=== PATIENT | female | born 1995 | race Caucasian/White ===

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

== ENCOUNTER 2017-10-13 15:03 | Emergency (ER) | payer BC, OTHER ==
--- NOTE | 2017-10-13 15:51 | EDM.PDOC ---
ED HPI GENERAL MEDICAL PROBLEM - General Chief Complaint: Abdominal Pain Stated Complaint: ABD PAIN Time Seen by Provider: 10/13/17 15:40 Source of Information: Reports: Patient History Limitations: Reports: No Limitations - History of Present Illness INITIAL COMMENTS - FREE TEXT/NARRATIVE: HISTORY AND PHYSICAL: History of present illness: Patient comes to the emergency room complaining of right and left upper abdominal pain. Symptoms began around noon yesterday and has persisted into today. She describes the pain as an aching that is sharp and is just below her ribs on both sides of her abdomen. She is having pain with laying on either side and on her back. She is complaining of low back pain worse on the right than the left. Denies burning with urination and urinary frequency. No blood in her urine. She is also having some loose stools-several episodes today. No nausea or vomiting. Appetite is normal. Patient is concerned that she may be constipated as she is only been having small amounts of watery stools. Her abdomen feels full and that she needs to have a bowel movement. Denies earaches sore throat head and chest congestion. No coughing chest pain shortness of breath or difficulty breathing. No nausea or vomiting. No swelling to her feet or lower legs. Is sexually active and uses control. Is due for her period any day. Review of systems: As per history of present illness and below otherwise all systems reviewed and negative. Past medical history: As per history of present illness and as reviewed below otherwise noncontributory. Surgical history: As per history of present illness and as reviewed below otherwise noncontributory. Social history: No reported history of drug or alcohol abuse. Family history: As per history of present illness and as reviewed below otherwise noncontributory. Physical exam: HEENT: Atraumatic, normocephalic., pupils reactive, negative for conjunctival pallor or scleral icterus, mucous membranes moist, throat clear, neck supple, nontender, trachea midline. Lungs: Clear to auscultation bilaterally. No wheezing crackles or rales. Heart: S1S2, regula rate and rhythm. No murmur gallop click or rub. Abdomen: Bowel sounds are normoactive throughout. No masses guarding or rebound. She is tender with palpation over suprapubic area as well as to right and left upper quadrants and epigastric area. Tender with percussion over right CVA. Pelvis: Stable nontender. Genitourinary: Deferred. Rectal: Deferred. Extremities: Atraumatic. No swelling or cyanosis. No muscle or joint aches or pains. Neurovascular unremarkable. Neuro: Awake, alert, oriented. Motor and sensory unremarkable throughout. Exam nonfocal. Diagnostics: [CBC, CMP, urinalysis, urine , amylase, lipase, abd x-ray] Impression: [Abdominal discomfort] Plan: [Discussed with patient that her abdominal x-ray shows no stool or obstruction, and that her labs are within normal limits. Recommend she treat as a viral syndrome at this point with clear fluids and no dairy, fatty or greasy foods until she is feeling improved. Follow-up with PCP. Return to ER as needed as discussed. She is in agreement with today's plan.] Definitive disposition and diagnosis as appropriate pending reevaluation and review of above. 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 Musculoskeletal History: Reports: None Neurological History: Reports: None Psychiatric History: Reports: None Endocrine/Metabolic History: Reports: None Hematologic History: Reports: None Oncologic (Cancer) History: Reports: None Dermatologic History: Reports: None - Infectious Disease History Infectious Disease History: Reports: Chicken Pox - Past Surgical History Head Surgeries/Procedures: Reports: None HEENT Surgical History: Reports: Adenoidectomy, Myringotomy w Tube(s), Tonsillectomy Social & Family History - Family History Family Medical History: Noncontributory - Tobacco Use Smoking Status *Q: Never Smoker Second Hand Smoke Exposure: No - Caffeine Use Caffeine Use: Reports: Soda Caffeine Use Comment: 3/week - Recreational Drug Use Recreational Drug Use: No ED ROS GENERAL - Review of Systems Review Of Systems: ROS reveals no pertinent complaints other than HPI. ED EXAM, GI/ABD - Physical Exam Exam: See Below Course - Vital Signs Last Recorded V/S: Last Vital Signs Temp 98.1 F 10/13/17 18:31 Pulse 65 10/13/17 18:31 Resp 16 10/13/17 18:31 BP 119/65 10/13/17 18:31 Pulse Ox 100 10/13/17 18:31 - Orders/Labs/Meds Labs: Laboratory Tests 10/13/17 10/13/17 10/13/17 Range/Units 15:42 15:42 15:45 WBC 8.56 (4.0-11.0) K/uL RBC 4.86 (4.30-5.90) M/uL Hgb 12.1 (12.0-16.0) g/dL Hct 37.9 (36.0-46.0) % MCV 78.0 L (80.0-98.0) fL MCH 24.9 L (27.0-32.0) pg MCHC 31.9 (31.0-37.0) g/dL RDW Std Deviation 41.4 (28.0-62.0) fl RDW Coeff of Lucia 15 (11.0-15.0) % Plt Count 310 (150-400) K/uL MPV 11.70 (7.40-12.00) fL Neut % (Auto) 69.0 (48.0-80.0) % Lymph % (Auto) 20.8 (16.0-40.0) % Gray % (Auto) 9.3 (0.0-15.0) % Eos % (Auto) 0.7 (0.0-7.0) % Baso % (Auto) 0.2 (0.0-1.5) % Neut # (Auto) 5.9 H (1.4-5.7) K/uL Lymph # (Auto) 1.8 (0.6-2.4) K/uL Gray # (Auto) 0.8 (0.0-0.8) K/uL Eos # (Auto) 0.1 (0.0-0.7) K/uL Baso # (Auto) 0.0 (0.0-0.1) K/uL Nucleated RBC % 0.0 /100WBC Nucleated RBCs # 0 K/uL Sodium (136-146) mmol/L Potassium (3.5-5.1) mmol/L Chloride (98-110) mmol/L Carbon Dioxide (21-31) mmol/L BUN (6.0-23.0) mg/dL Creatinine (0.6-1.5) mg/dL Est Cr Clr Drug Dosing mL/min Estimated GFR (MDRD) ml/min Glucose (60-110) mg/dL Calcium (8.8-10.8) mg/dL Total Bilirubin (0.1-1.5) mg/dL AST (5-40) IU/L ALT (8-54) IU/L Alkaline Phosphatase (40-150) Total Protein (6.0-8.0) g/dL Albumin (3.5-5.0) g/dL Globulin (2.0-3.5) g/dL Albumin/Globulin Ratio (1.3-2.8) Amylase (10-90) U/L Lipase (7-80) U/L Urine Color YELLOW Urine Appearance CLEAR Urine pH 6.0 (5.0-8.0) Ur Specific [place] >= 1.030 (1.001-1.035) Urine Protein NEGATIVE (NEGATIVE) mg/dL Urine Glucose (UA) NEGATIVE (NEGATIVE) mg/dL Urine Ketones NEGATIVE (NEGATIVE) mg/dL Urine Occult Blood TRACE-INTACT (NEGATIVE) Urine Nitrite NEGATIVE (NEGATIVE) Urine Bilirubin NEGATIVE (NEGATIVE) Urine Urobilinogen 0.2 (<2.0) EU/dL Ur Leukocyte Esterase NEGATIVE (NEGATIVE) Urine RBC 0-1 (0-2/HPF) Urine WBC 0-1 (0-5/HPF) Ur Epithelial Cells FEW (NONE-FEW) Urine Bacteria RARE (NEGATIVE) Urine HCG, Qual NEGATIVE (NEGATIVE) 10/13/17 Range/Units 15:45 WBC (4.0-11.0) K/uL RBC (4.30-5.90) M/uL Hgb (12.0-16.0) g/dL Hct (36.0-46.0) % MCV (80.0-98.0) fL MCH (27.0-32.0) pg MCHC (31.0-37.0) g/dL RDW Std Deviation (28.0-62.0) fl RDW Coeff of Lucia (11.0-15.0) % Plt Count (150-400) K/uL MPV (7.40-12.00) fL Neut % (Auto) (48.0-80.0) % Lymph % (Auto) (16.0-40.0) % Gray % (Auto) (0.0-15.0) % Eos % (Auto) (0.0-7.0) % Baso % (Auto) (0.0-1.5) % Neut # (Auto) (1.4-5.7) K/uL Lymph # (Auto) (0.6-2.4) K/uL Gray # (Auto) (0.0-0.8) K/uL Eos # (Auto) (0.0-0.7) K/uL Baso # (Auto) (0.0-0.1) K/uL Nucleated RBC % /100WBC Nucleated RBCs # K/uL Sodium 142 (136-146) mmol/L Potassium 3.6 (3.5-5.1) mmol/L Chloride 107 (98-110) mmol/L Carbon Dioxide 25 (21-31) mmol/L BUN 8 (6.0-23.0) mg/dL Creatinine 0.7 (0.6-1.5) mg/dL Est Cr Clr Drug Dosing 110.70 mL/min Estimated GFR (MDRD) > 60.0 ml/min Glucose 85 (60-110) mg/dL Calcium 9.7 (8.8-10.8) mg/dL Total Bilirubin 0.4 (0.1-1.5) mg/dL AST 13 (5-40) IU/L ALT 10 (8-54) IU/L Alkaline Phosphatase 87 (40-150) Total Protein 8.1 H (6.0-8.0) g/dL Albumin 4.4 (3.5-5.0) g/dL Globulin 3.7 H (2.0-3.5) g/dL Albumin/Globulin Ratio 1.2 L (1.3-2.8) Amylase 52 (10-90) U/L Lipase 24 (7-80) U/L Urine Color Urine Appearance Urine pH (5.0-8.0) Ur Specific [place] (1.001-1.035) Urine Protein (NEGATIVE) mg/dL Urine Glucose (UA) (NEGATIVE) mg/dL Urine Ketones (NEGATIVE) mg/dL Urine Occult Blood (NEGATIVE) Urine Nitrite (NEGATIVE) Urine Bilirubin (NEGATIVE) Urine Urobilinogen (<2.0) EU/dL Ur Leukocyte Esterase (NEGATIVE) Urine RBC (0-2/HPF) Urine WBC (0-5/HPF) Ur Epithelial Cells (NONE-FEW) Urine Bacteria (NEGATIVE) Urine HCG, Qual (NEGATIVE) Departure - Departure Time of Disposition: 18:10 Disposition: Home, Self-Care 01 Condition: Good Clinical Impression: Viral syndrome - Discharge Information Instructions: Viral Respiratory Infection, [id number] Referrals: PCP,None [Primary Care Provider] - Forms: ED Department Discharge Additional Instructions: The following information is given to patients seen in the emergency department who are being discharged to home. This information is to outline your options for follow-up care. We provide all patients seen in our emergency department with a follow-up referral. The need for follow-up, as well as the timing and circumstances, are variable depending upon the specifics of your emergency department visit. If you don't have a primary care physician on staff, we will provide you with a referral. We always advise you to contact your personal physician following an emergency department visit to inform them of the circumstance of the visit and for follow-up with them and/or the need for any referrals to a consulting specialist. The emergency department will also refer you to a specialist when appropriate. This referral assures that you have the opportunity for follow-up care with a specialist. All of these measure are taken in an effort to provide you with optimal care, which includes your follow-up. Under all circumstances we always encourage you to contact your private physician who remains a resource for coordinating your care. When calling for follow-up care, please make the office aware that this follow-up is from your recent emergency room visit. If for any reason you are refused follow-up, please contact the [facility] emergency department at and asked to speak to the emergency department charge nurse. [facility] [address] [place] [id number] Follow-up with your local primary care provider or at the clinic listed above in 48-72 hours. Push fluids, get plenty of rest. Avoid dairy. No fatty or greasy foods until feeling improved. Return to ER as needed as discussed.
[2017-10-13 16:20] LABS: CHLORIDE,CL 107 mmol/L (98-110); SODIUM,NA 142 mmol/L (136-146)
[2017-10-13 18:32] VITALS: BP 119/65
--- NOTE | 2017-10-14 15:48 | CR ---
EXAM DATE: 10/13/17 PATIENT'S AGE: 22 Patient: NIKKI SOLOMON Facility: [place], [place] Site . Site : 1995 Study: XRay Abdomen [id number]/11/2018 5:21:58 PM Ordering Physician: Doctor Pina Final Report: INDICATION: left sided abd pain, nausea, diarrhea TECHNIQUE: Abdomen 4 view. COMPARISON: None. FINDINGS: Bowel: Bowel pattern is normal. No significant stool in the colon. Soft tissues: No sign of free air. No sign of soft tissue mass. No suspicious calcifications. Bones: Unremarkable for age. IMPRESSION: Unremarkable abdomen. Dictated by: Jaylen West MD @ 10/13/2017 17:35:30 (Electronic Signature) Report Signed by Proxy. [facility]OSPITALVan
== END 2017-10-13 18:32 | disposition home or self-care (01) ==
LOC: MW.ED 15:03
DX: B34.9 Viral infection, unspecified (principal); Z91.030 Bee allergy status
CPT/HCPCS: 36415; 74019; 74019-26; 80053; 81001; 81025; 82150; 83690; 85025; 99284

== ENCOUNTER 2018-04-05 00:27 | Emergency (ER) | payer BC, OTHER ==
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
[2018-04-05 01:29] VITALS: BP 110/70
== END 2018-04-05 01:25 | disposition home or self-care (01) ==
LOC: MW.ED 00:27
DX: S01.4 Open wound of cheek and temporomandibular area (principal); S01.82XA Laceration with foreign body of other part of head, initial encounter; S01.22XA Laceration with foreign body of nose, initial encounter; Z91.030 Bee allergy status; Y08.89XA Assault by other specified means, initial encounter
CPT/HCPCS: 99283

== ENCOUNTER 2019-11-27 22:04 | Emergency (ER) | payer BC, OTHER ==
[2019-11-27 22:24] VITALS: PULSE 74
[2019-11-27 23:44] VITALS: BP 136/80
--- NOTE | 2019-11-27 23:50 | CR ---
INDICATION: chest discomfort and cough x 4 days CHEST, PA AND LATERAL Upright PA and lateral radiographs of the chest were performed. Comparison: No previous studies are currently available for comparison. The lungs appear clear and there are no pleural effusions. Heart size and pulmonary vasculature appear normal. Visualized bones show no significant findings. IMPRESSION: No acute intrathoracic abnormality identified. CORNELIA ADHIKARI MD [facility] Dictated by: Seth Adhikari MD @ 11/27/2019 23:48:29 (Electronically Signed)
--- NOTE | 2019-11-27 23:54 | EDM.PDOC ---
ED HPI GENERAL MEDICAL PROBLEM - General Chief Complaint: Respiratory Problem Stated Complaint: COUGH,HARD TIME BREATHING Time Seen by Provider: 11/27/19 22:35 Source of Information: Reports: Patient History Limitations: Reports: No Limitations - History of Present Illness INITIAL COMMENTS - FREE TEXT/NARRATIVE: 24-year-old female no significant past medical history presenting with a chief complaint of cough and chest congestion. Duration of symptoms have been for several days. Cough is nonproductive. Patient does not have any associated shortness of breath. Patient states her chest discomfort is located in the middle of the chest and worse after coughing. Patient states her difficulty breathing is primarily with these coughing attacks. Patient denies any URI symptoms such as rhinorrhea or sore throat. Patient has otherwise been well and not having any recent travel. Patient has no recent antibiotic use. Patient took inhaler earlier which was prescribed for exercise-induced asthma without any relief. Pmhx: Per HPI Pshx: None Family Hx: noncontributory Smoking history? no Etoh use? none Drug use? none In addition to that documented in the HPI above, the additional ROS was obtained : Constitutional: Denies fevers or chills Eyes: Denies vision changes ENMT: Denies sore throat CV: Denies chest pain Resp: Per HPI GI: Denies vomiting or diarrhea : Denies painful urination MSK: Denies recent trauma Skin: Denies new rashes Neuro: Denies new numbness or tingling or weakness Endocrine: Denies unexpected weight loss Heme: Denies bleeding disorders I have reviewed the triage vital signs Const: Well nourished, well developed, appears stated age Eyes: PERRL, no conjunctival injection HENT: NCAT, Neck supple without meningismus CV: RRR, Warm, well-perfused extremities RESP: CTAB, Unlabored respiratory effort GI: soft, non-tender, non-distended, no masses MSK: No gross deformities appreciated Skin: Warm, dry. No rashes Neuro: Alert, police judge II-XII grossly intact. Sensation and motor function of extremities grossly intact. Psych: Appropriate mood and affect Assessment and plan: 24-year-old female presenting with a chief complaint of cough chest congestion and intermittent fevers. Patient has no evidence of pulmonary embolism based on physical exam and HPI. Patient chest x-ray is within normal limits. Patient likely diagnosis of bronchitis. Patient educated on supportive care. Patient given strict return precautions. All questions dressed and answered. Patient agrees with plan. chest area Pain Score (Numeric/FACES): 5 - Related Data Allergies Allergy/AdvReac Type Severity Reaction Status Date / Time venom-honey bee Allergy Severe Airway Verified 11/27/19 22:21 [bee venom (honey bee)] Tightness Home Meds: Home Meds Albuterol [Ventolin HFA] 1 puff INH ASDIRECTED PRN 09/23/14 [History] Control 1 tab PO DAILY 04/05/18 [History] Benzonatate [Tessalon Perle] 100 mg PO TID #21 capsule 11/27/19 [Rx] Past Medical History HEENT History: Reports: None Cardiovascular History: Reports: None Respiratory History: Reports: Asthma Other Respiratory History: sports induced asthma Gastrointestinal History: Reports: None Genitourinary History: Reports: None DIRECTOR OF BUSINESS SYSTEMS History: Reports: None Musculoskeletal History: Reports: None Neurological History: Reports: None Psychiatric History: Reports: None Endocrine/Metabolic History: Reports: None Insulin Pump Model and Mail Sorter: N/A Hematologic History: Reports: None Immunologic History: Reports: None Oncologic (Cancer) History: Reports: None Dermatologic History: Reports: None - Infectious Disease History Infectious Disease History: Reports: None - Past Surgical History Head Surgeries/Procedures: Reports: None HEENT Surgical History: Reports: Adenoidectomy, Myringotomy w Tube(s), Tonsillectomy Respiratory Surgical History: Reports: None Social & Family History - Family History Family Medical History: Noncontributory - Tobacco Use Smoking Status *Q: Never Smoker - Caffeine Use Caffeine Use: Reports: Coffee, Soda Caffeine Use Comment: 3/week - Recreational Drug Use Recreational Drug Use: No ED ROS GENERAL - Review of Systems Review Of Systems: See Below ED EXAM, GENERAL - Physical Exam Exam: See Below Course - Vital Signs Last Recorded V/S: Last Vital Signs Temp 36.3 C 11/27/19 23:44 Pulse 74 11/27/19 23:44 Resp 17 11/27/19 23:44 BP 136/80 11/27/19 23:44 Pulse Ox 100 11/27/19 23:44 Departure - Departure Time of Disposition: 23:53 Disposition: Home, Self-Care 01 Clinical Impression: Bronchitis - Discharge Information Prescriptions: Benzonatate [Tessalon Perle] 100 mg PO TID #21 capsule Instructions: Acute Bronchitis, Adult Referrals: Alicia Patel MD [Primary Care Provider] - Forms: ED Department Discharge Additional Instructions: The following information is given to patients seen in the emergency department who are being discharged to home. This information is to outline your options for follow-up care. We provide all patients seen in our emergency department with a follow-up referral. The need for follow-up, as well as the timing and circumstances, are variable depending upon the specifics of your emergency department visit. If you don't have a primary care physician on staff, we will provide you with a referral. We always advise you to contact your personal physician following an emergency department visit to inform them of the circumstance of the visit and for follow-up with them and/or the need for any referrals to a consulting specialist. The emergency department will also refer you to a specialist when appropriate. This referral assures that you have the opportunity for follow-up care with a specialist. All of these measure are taken in an effort to provide you with optimal care, which includes your follow-up. Under all circumstances we always encourage you to contact your private physician who remains a resource for coordinating your care. When calling for follow-up care, please make the office aware that this follow-up is from your recent emergency room visit. If for any reason you are refused follow-up, please contact the [facility] Emergency Department at and asked to speak to the emergency department charge nurse. Sepsis Event Note - Evaluation Sepsis Screening Result: No Definite Risk - Focused Exam Vital Signs: Vital Signs Temp Pulse Resp BP Pulse Ox 11/27/19 23:44 36.3 C 74 17 136/80 100 11/27/19 22:20 37.2 C 74 18 140/65 99 Date Exam was Performed: 11/28/19 Time Exam was Performed: 04:46
== END 2019-11-28 00:05 | disposition home or self-care (01) ==
LOC: MW.ED 22:04
DX: J40 Bronchitis, not specified as acute or chronic (principal); Z91.030 Bee allergy status
CPT/HCPCS: 71046; 71046-26; 99283; 99284-25

== ENCOUNTER 2021-08-13 13:17 | Emergency (ER) | payer BC, OTHER ==
--- NOTE | 2021-08-13 13:21 | EDM.PDOC ---
ED HPI GENERAL MEDICAL PROBLEM - General Chief Complaint: DISTRESSER Problem Stated Complaint: BLEEDING/ 6 WEEKS Time Seen by Provider: 08/13/21 13:18 Source of Information: Reports: Patient History Limitations: Reports: No Limitations - History of Present Illness INITIAL COMMENTS - FREE TEXT/NARRATIVE: HISTORY AND PHYSICAL: History of present illness: Patient is a 26-year-old female who presents to the emergency room with complaints of vaginal bleeding and . Last menstrual period was approximately 6 weeks ago she was seen at [facility] and confirmed . This afternoon she started to have painless vaginal bleeding stating that there were clots in significant amount of blood. She is concerned she is miscarrying. 1, para 0. Patient denies any fever, chills, headache, change in vision, syncope or near syncope. Denies any chest pain, back pain, shortness of breath or cough. Denies any abdominal pain, nausea, vomiting, diarrhea, constipation or dysuria. Has not noted any blood in urine or stool. Patient has been eating and drinking appropriately. No recent travel or sick contacts. Review of systems: As per history of present illness and below otherwise all systems reviewed and negative. Past medical history: As per history of present illness and as reviewed below otherwise noncontributory. Surgical history: As per history of present illness and as reviewed below otherwise noncontributory. Social history: See social history for further information Family history: As per history of present illness and as reviewed below otherwise noncontributory. Physical exam: General: Well developed and well nourished. Alert and orientated x 3. Nontoxic in appearance and in no acute distress. Vital signs are stable and have been reviewed by me. Nursing notes were reviewed. HEENT: Atraumatic, normocephalic, pupils equal and reactive bilaterally, negative for conjunctival pallor or scleral icterus, mucous membranes moist, TMs normal bilaterally, throat clear, neck supple, nontender, trachea midline. No drooling or trismus noted. No meningeal signs. No hot potato voice noted. Lungs: Clear to auscultation bilaterally. No wheezes, rales, or rhonchi. Chest nontender. Normal work of breathing, no accessory muscles used. Heart: S1S2, regular rate and rhythm without overt murmur, gallops, or rubs. No JVD. No peripheral edema Abdomen: Soft, nondistended, nontender. Normoactive bowel sounds. Negative for masses or costovertebral tenderness. Pelvis: Stable nontender. Genitourinary/Rectal: This was done with consent and a fabric separator operator at the bedside. Patient does have blood in the vaginal vault. Cervical os is closed no active bleeding is noted. No cervical motion tenderness and tolerated exam well. Skin: Intact, warm, dry. No lesions or rashes noted. Hematologic: No petechiae or purpra. Mucosa appropriate color and normal nail bed color and refill. Extremities: Atraumatic, moves all extremities per self without difficulty or deficits, negative for cords or calf pain. Neurovascular unremarkable. Neuro: Awake, alert, oriented. Cranial nerves II through XII unremarkable. Cerebellum unremarkable. Motor and sensory unremarkable throughout. Exam nonfocal. Psychiatric: Mood and affect are appropriate. Normal thought process. Answering questions appropriately. Please note that the patient was seen and evaluated during the 2019 SARS-CoV-2 novel coronavirus pandemic period. Community viral transmission is ongoing at time of this encounter and the emergency department is operating under pandemic response procedures. Medical Decision Making: Patient is a 26-year-old female who presents to the emergency room with complaints of vaginal bleeding during . Patient states that she had confirmed at [facility] and was told she is 6 weeks along. Started bleeding this afternoon without any injury, pelvic activity or trauma. Pelvic exam shows that there is blood in the vaginal vault, cervical os is closed with no active bleeding at this time. She has no cervical motion tenderness. We'll do a first trimester bleed work-up. Ultrasound shows no signs of . No ultrasound explanation for bleeding. Quantitative hCG is 131. She states she does have an appointment tomorrow to see Dr. Polanco at [facility]. I have talked with the patient about today's findings, in addition to providing specific details for plan of care. Reassessment at the time of disposition demonstrates that the patient is in no acute distress. The patient is stable for discharge, counseling was provided and we discussed in great detail signs and symptoms that would prompt them to return to the Emergency Department. Medication, follow up and supportive care measures were reviewed and discussed. Voices understanding and is agreeable to plan of care. Denies any further questions or concerns at this time. Diagnostics: CBC, CMP, UA, hCG quant, OB ultrasound, ABH Therapeutics: None Prescription: Outpatient quant hCG Impression: Threatened miscarriage early Plan: 1. Today you were evaluated on an emergent basis. Your lab work shows no evidence of infection or significant blood loss. Your quant today was 131. Your ultrasound shows no signs of , although you are very early and this could be normal. You will need a repeat quantitative HCG ( hormone) redrawn on 08/15/21. As we discussed, this number should increase during your first trimester. Typically OBGYNs want a repeat ultrasound in 2 weeks, please schedule this with your OBGYN. 2. Pelvic rest until cleared by your OBGYN (no tampons, sex, etc...) 3. Please start and/or continue to take your vitamin with folic acid once daily. Tylenol as needed for pain management. 4. Follow up with your DISTRESSER in the few days. 5. If your symptoms should worsen, new symptoms develop - Please return to the ED as needed and as discussed. Definitive disposition and diagnosis as appropriate pending reevaluation and review of above. - Related Data Allergies Allergy/AdvReac Type Severity Reaction Status Date / Time venom-honey bee Allergy Severe Airway Verified 08/13/21 13:25 [bee venom (honey bee)] Tightness Home Meds: Home Meds Albuterol [Ventolin HFA] 1 puff INH ASDIRECTED PRN 09/23/14 [History] Control 1 tab PO DAILY 04/05/18 [History] Benzonatate [Tessalon Perle] 100 mg PO TID #21 capsule 11/27/19 [Rx] Past Medical History HEENT History: Reports: None Cardiovascular History: Reports: None Respiratory History: Reports: Asthma Other Respiratory History: sports induced asthma Gastrointestinal History: Reports: None Genitourinary History: Reports: None DISTRESSER History: Reports: None Musculoskeletal History: Reports: None Neurological History: Reports: None Psychiatric History: Reports: None Endocrine/Metabolic History: Reports: None Insulin Pump Model and Billing Services Manager: N/A Hematologic History: Reports: None Immunologic History: Reports: None Oncologic (Cancer) History: Reports: None Dermatologic History: Reports: None - Infectious Disease History Infectious Disease History: Reports: None - Past Surgical History Head Surgeries/Procedures: Reports: None HEENT Surgical History: Reports: Adenoidectomy, Myringotomy w Tube(s), Tonsillectomy Respiratory Surgical History: Reports: None Social & Family History - Family History Family Medical History: No Pertinent Family History - Caffeine Use Caffeine Use: Reports: Coffee, Soda Caffeine Use Comment: 3/week ED ROS GENERAL - Review of Systems Review Of Systems: Comprehensive ROS is negative, except as noted in HPI. ED EXAM - Physical Exam Exam: See Below (See dictation) Course - Vital Signs Last Recorded V/S: Last Vital Signs Temp 97.9 F 08/13/21 13:26 Pulse 66 08/13/21 15:09 Resp 17 08/13/21 15:09 BP 140/73 08/13/21 15:09 Pulse Ox 100 08/13/21 15:09 - Orders/Labs/Meds Labs: Laboratory Tests 08/13/21 08/13/21 08/13/21 Range/Units 13:51 14:46 14:46 WBC 8.86 (4.0-11.0) K/uL RBC 4.21 L (4.30-5.90) M/uL Hgb 11.8 L (12.0-16.0) g/dL Hct 35.6 L (36.0-46.0) % MCV 84.6 (80.0-98.0) fL MCH 28.0 (27.0-32.0) pg MCHC 33.1 (31.0-37.0) g/dL RDW Std Deviation 42.1 (28.0-62.0) fl RDW Coeff of Lucia 14 (11.0-15.0) % Plt Count 258 (150-400) K/uL MPV 10.90 (7.40-12.00) fL Neut % (Auto) 71.1 (48.0-80.0) % Lymph % (Auto) 21.9 (16.0-40.0) % Leslie % (Auto) 6.3 (0.0-15.0) % Eos % (Auto) 0.6 (0.0-7.0) % Baso % (Auto) 0.1 (0.0-1.5) % Neut # (Auto) 6.3 H (1.4-5.7) K/uL Lymph # (Auto) 1.9 (0.6-2.4) K/uL Leslie # (Auto) 0.6 (0.0-0.8) K/uL Eos # (Auto) 0.1 (0.0-0.7) K/uL Baso # (Auto) 0.0 (0.0-0.1) K/uL Nucleated RBC % 0.0 /100WBC Nucleated RBCs # 0 K/uL Sodium 139 (136-145) mmol/L Potassium 3.8 (3.5-5.1) mmol/L Chloride 104 (98-107) mmol/L Carbon Dioxide 27.3 (21.0-32.0) mmol/L BUN 5 L (7.0-18.0) mg/dL Creatinine 0.6 (0.6-1.0) mg/dL Est Cr Clr Drug Dosing 124.85 mL/min Estimated GFR (MDRD) > 60.0 ml/min Glucose 85 (74-106) mg/dL Calcium 8.2 L (8.5-10.1) mg/dL Total Bilirubin 0.4 (0.2-1.0) mg/dL AST 14 L (15-37) IU/L ALT 18 (14-63) IU/L Alkaline Phosphatase 104 (46-116) U/L Total Protein 7.3 (6.4-8.2) g/dL Albumin 3.3 L (3.4-5.0) g/dL Globulin 4.0 (2.6-4.0) g/dL Albumin/Globulin Ratio 0.8 L (0.9-1.6) HCG, Quant mIU/mL Urine Color YELLOW Urine Appearance CLEAR Urine pH 6.5 (5.0-8.0) Ur Specific [place] 1.020 (1.001-1.035) Urine Protein NEGATIVE (NEGATIVE) mg/dL Urine Glucose (UA) NEGATIVE (NEGATIVE) mg/dL Urine Ketones NEGATIVE (NEGATIVE) mg/dL Urine Occult Blood MODERATE H (NEGATIVE) Urine Nitrite NEGATIVE (NEGATIVE) Urine Bilirubin NEGATIVE (NEGATIVE) Urine Urobilinogen 0.2 (<2.0) EU/dL Ur Leukocyte Esterase NEGATIVE (NEGATIVE) Urine RBC 1-3 (0-2/HPF) Urine WBC 0-2 (0-5/HPF) Ur Epithelial Cells FEW (NONE-FEW) Urine Bacteria 1+ H (NEGATIVE) Urine Mucus LIGHT (NONE-MOD) Blood Type 11/11/21 11/11/21 Range/Units 14:46 14:46 WBC (4.0-11.0) K/uL RBC (4.30-5.90) M/uL Hgb (12.0-16.0) g/dL Hct (36.0-46.0) % MCV (80.0-98.0) fL MCH (27.0-32.0) pg MCHC (31.0-37.0) g/dL RDW Std Deviation (28.0-62.0) fl RDW Coeff of Lucia (11.0-15.0) % Plt Count (150-400) K/uL MPV (7.40-12.00) fL Neut % (Auto) (48.0-80.0) % Lymph % (Auto) (16.0-40.0) % Leslie % (Auto) (0.0-15.0) % Eos % (Auto) (0.0-7.0) % Baso % (Auto) (0.0-1.5) % Neut # (Auto) (1.4-5.7) K/uL Lymph # (Auto) (0.6-2.4) K/uL Leslie # (Auto) (0.0-0.8) K/uL Eos # (Auto) (0.0-0.7) K/uL Baso # (Auto) (0.0-0.1) K/uL Nucleated RBC % /100WBC Nucleated RBCs # K/uL Sodium (136-145) mmol/L Potassium (3.5-5.1) mmol/L Chloride (98-107) mmol/L Carbon Dioxide (21.0-32.0) mmol/L BUN (7.0-18.0) mg/dL Creatinine (0.6-1.0) mg/dL Est Cr Clr Drug Dosing mL/min Estimated GFR (MDRD) ml/min Glucose (74-106) mg/dL Calcium (8.5-10.1) mg/dL Total Bilirubin (0.2-1.0) mg/dL AST (15-37) IU/L ALT (14-63) IU/L Alkaline Phosphatase (46-116) U/L Total Protein (6.4-8.2) g/dL Albumin (3.4-5.0) g/dL Globulin (2.6-4.0) g/dL Albumin/Globulin Ratio (0.9-1.6) HCG, Quant 131.0 mIU/mL Urine Color Urine Appearance Urine pH (5.0-8.0) Ur Specific [place] (1.001-1.035) Urine Protein (NEGATIVE) mg/dL Urine Glucose (UA) (NEGATIVE) mg/dL Urine Ketones (NEGATIVE) mg/dL Urine Occult Blood (NEGATIVE) Urine Nitrite (NEGATIVE) Urine Bilirubin (NEGATIVE) Urine Urobilinogen (<2.0) EU/dL Ur Leukocyte Esterase (NEGATIVE) Urine RBC (0-2/HPF) Urine WBC (0-5/HPF) Ur Epithelial Cells (NONE-FEW) Urine Bacteria (NEGATIVE) Urine Mucus (NONE-MOD) Blood Type B POSITIVE Departure - Departure Time of Disposition: 15:39 Disposition: Home, Self-Care 01 Clinical Impression: Threatened miscarriage in early - Discharge Information Instructions: Threatened Miscarriage, [id number] [facility] - Forms: ED Department Discharge Additional Instructions: The following information is given to patients seen in the emergency department who are being discharged to home. This information is to outline your options for follow-up care. We provide all patients seen in our emergency department with a follow-up referral. The need for follow-up, as well as the timing and circumstances, are variable depending upon the specifics of your emergency department visit. If you don't have a primary care physician on staff, we will provide you with a referral. We always advise you to contact your personal physician following an emergency department visit to inform them of the circumstance of the visit and for follow-up with them and/or the need for any referrals to a consulting specialist. The emergency department will also refer you to a specialist when appropriate. This referral assures that you have the opportunity for follow-up care with a specialist. All of these measure are taken in an effort to provide you with optimal care, which includes your follow-up. Under all circumstances we always encourage you to contact your private physician who remains a resource for coordinating your care. When calling for follow-up care, please make the office aware that this follow-up is from your recent emergency room visit. If for any reason you are refused follow-up, please contact the [facility] Emergency Department at and asked to speak to the emergency department charge nurse. [facility] [address] [place] [address] [facility] [address] [place] [address] Thank you for choosing the [facility] emergency department in [place] for your medical needs today. It was a pleasure caring for you. Today you were seen in the emergency department for vaginal bleeding in . 1. Today you were evaluated on an emergent basis. Your lab work shows no evidence of infection nor significant blood loss. Your quant today was 131. Your ultrasound shows no signs of , although you are very early and this co uld be normal. You will need a repeat quantitative HCG ( hormone) redrawn on 08/15/21. As we discussed, this number should increase during your first trimester. Typically OBGYNs want a repeat ultrasound in 2 weeks, please schedule this with your OBGYN. 2. Pelvic rest until cleared by your OBGYN (no tampons, sex, etc...) 3. Please start and/or continue to take your vitamin with folic acid once daily. Tylenol as needed for pain management. 4. Follow up with your DISTRESSER in the few days. 5. If your symptoms should worsen, new symptoms develop - Please return to the ED as needed and as discussed. Sepsis Event Note (ED) - Focused Exam Vital Signs: Vital Signs Temp Pulse Resp BP Pulse Ox 08/13/21 15:09 66 17 140/73 100 08/13/21 13:26 97.9 F 93 17 132/85 97
--- NOTE | 2021-08-13 15:03 | US ---
INDICATION: Six weeks with bleeding. TECHNIQUE: Ultrasound OB pelvis transvaginal. Real-time madrigal-scale imaging of the pelvis was performed. COMPARISON: None. FINDINGS: There is no sign of intrauterine or ectopic . Uterus and endometrium are normal. The ovaries are of normal size. Suspected corpus luteum in the left ovary. There are no suspicious fluid collections noted in the cul-de-sac. IMPRESSION: No signs of . No ultrasound explanation for bleeding. Dictated by Jaylen West MD @ 08/13/2021 3:01:37 PM (Electronically Signed)
[2021-08-13 15:09] VITALS: BP 140/73; PULSE 66
[2021-08-13 15:24] LABS: BLOOD UREA NITROGEN,BUN 5 mg/dL (7.0-18.0); CARBON DIOXIDE,CO2 27.3 mmol/L (21.0-32.0); CHLORIDE,CL 104 mmol/L (98-107); GLUCOSE RANDOM 85 mg/dL (74-106); POTASSIUM,K 3.8 mmol/L (3.5-5.1); SODIUM,NA 139 mmol/L (136-145)
== END 2021-08-13 15:46 | disposition home or self-care (01) ==
LOC: MW.ED 13:17
DX: O20.0 Threatened abortion (principal); Z3A.01 Less than 8 weeks gestation of pregnancy; Z91.030 Bee allergy status
CPT/HCPCS: 36415; 76817; 76817-26; 80053; 81001; 84702; 85025; 86900; 86901; 99284-25

== ENCOUNTER 2022-11-07 17:32 | Emergency (ER) | payer BC, OTHER ==
[2022-11-07] MEDS ORDERED: Orphenadrine 60 MG/2 ML Inj IM STA (17:46)
[2022-11-07] MEDS ORDERED: Acetaminophen/HYDROcodone 325-10 MG Tab PO STA (17:46)
[2022-11-07 19:42] VITALS: BP 155/76; PULSE 100
== END 2022-11-07 19:42 | disposition home or self-care (01) ==
LOC: MW.ED 17:32
DX: M25.562 Pain in left knee (principal); J45.909 Unspecified asthma, uncomplicated; Z91.030 Bee allergy status; W22.8XXA Striking against or struck by other objects, initial encounter; Y93.67 Activity, basketball
CPT/HCPCS: 73562; 96372; 99283; A9270; J2360

== ENCOUNTER 2024-03-10 04:08 | Inpatient (IN) | payer BC, OTHER ==
[2024-03-10] MEDS ORDERED: Ondansetron 4 MG/2 ML SDV IVPUSH PRN (04:41)
[2024-03-10] MEDS ORDERED: Methylergonovine 0.2 MG/1 ML Amp IM PRN (04:41)
[2024-03-10] MEDS ORDERED: Sodium Chloride 0.9% 20 ML SDV IV PRN (04:41)
[2024-03-10] MEDS ORDERED: Carboprost Tromethamine 250 MCG/1 mL Vial IM PRN (04:41)
[2024-03-10] MEDS ORDERED: Butorphanol 2 MG/ML SDV IVPUSH PRN (04:41)
[2024-03-10] MEDS ORDERED: Lidocaine 1% 50 ML MDV INJECT PRN (04:41)
[2024-03-10] MEDS ORDERED: Sodium Chloride 0.9% 10 ML Syringe FLUSH PRN (04:41)
[2024-03-10] MEDS ORDERED: Tranexamic Acid IN NACL,ISO-OS 1,000 MG in Premix Bag 1 BAG IV PRN (04:41)
[2024-03-10] MEDS ORDERED: Misoprostol 200 MCG Tab PO PRN (04:41)
[2024-03-10] MEDS ORDERED: Water For Irrigation,Sterile 1,000 ML Container IRR PRN (04:41)
[2024-03-10] MEDS ORDERED: Sodium Chloride 0.9% 2.5 ML Syringe FLUSH PRN (04:41)
[2024-03-10] MEDS ORDERED: Oxytocin/0.9 % Sodium Chloride 30 UNIT/500 ML BAG IV SCH (04:45)
[2024-03-10] MEDS: Ampicillin 2 GM in Sodium Chloride 0.9% 100 ML IV ONE (05:02)
[2024-03-10] MEDS: Lactated Ringers 1,000 ML IV SCH (05:02)
[2024-03-10 05:15] LABS: BASOPHILS ABSOLUTE AUTO 0.02 K/uL (0.00-0.20); BASOPHILS PERCENT AUTO 0.2 % (0.0-1.0); EOSINOPHILS ABSOLUTE AUTO 0.04 K/uL (0.00-0.45); EOSINOPHILS PERCENT AUTO 0.4 % (0.0-6.0); HEMATOCRIT 36.4 % (37.0-47.0); HEMOGLOBIN 12.2 g/dL (12.0-16.0); IMMATURE GRAN ABSOLUTE AUTO 0.04 K/uL (0.00-0.05); IMMATURE GRAN PERCENT AUTO 0.4 % (0.0-0.4); LYMPHOCYTES ABSOLUTE AUTO 1.72 K/uL (1.00-4.80); LYMPHOCYTES PERCENT AUTO 16.7 % (24.0-44.0); MEAN CORPUSCULAR HEMOGLOBIN 28.5 pg (28.0-32.0); MEAN CORPUSCULAR HGB CONC 33.5 g/dL (32.0-36.0); MEAN PLATELET VOLUME 12.9 fL (9.4-12.3); MONOCYTES PERCENT AUTO 4.8 % (0.0-8.0); NEUTROPHILS ABSOLUTE AUTO 8.01 K/uL (1.80-7.70); NEUTROPHILS PERCENT AUTO 77.5 % (41.0-71.0); PLATELET COUNT,PLT 200 K/uL (150-400); RED BLOOD CELL COUNT 4.28 M/uL (4.10-5.30); WHITE BLOOD CELL COUNT,WBC 10.33 K/uL (3.9-11.3)
[2024-03-10 05:38] LABS: A/G RATIO 0.6 (0.9-1.6); ALBUMIN 2.5 g/dL (3.4-5.0); BILIRUBIN TOTAL 0.2 mg/dL (0.2-1.0); CALCIUM 8.9 mg/dL (8.5-10.1); CREATININE 0.6 mg/dL (0.6-1.0); EST CRCL DRUG DOSING (CG) 122.69 mL/min; POTASSIUM,K 3.9 mmol/L (3.5-5.1); PROTEIN TOTAL,TP 6.7 g/dL (6.4-8.2)
[2024-03-10 05:51] LABS: APPEARANCE,URINE CLEAR; BILIRUBIN,URINE NEGATIVE (NEGATIVE); COLOR,URINE YELLOW; GLUCOSE,URINE NEGATIVE (NEGATIVE); KETONES,URINE NEGATIVE (NEGATIVE); LEUKOCYTE ESTERASE,URINE NEGATIVE (NEGATIVE); NITRITE,URINE NEGATIVE (NEGATIVE); OCCULT BLOOD,URINE SMALL (NEGATIVE); PROTEIN,URINE NEGATIVE (NEGATIVE); UROBILINOGEN,URINE 0.2 EU/dL (<2.0)
[2024-03-10 05:59] LABS: BACTERIA,URINE FEW (NEGATIVE); EPITHELIAL CELLS,URINE FEW (NONE-FEW); MUCUS,URINE LIGHT (NONE-MOD); WBC,URINE 0-2 (0-5/HPF)
[2024-03-10 06:05] LABS: CREATININE,URINE RAND 80.4 mg/dL; PROTEIN CREATININE RATIO,URINE 0.2; PROTEIN,URINE RANDOM 15.6 mg/dL (<11.9)
[2024-03-10] MEDS: Loperamide 2 MG Cap PO PRN (06:14)
[2024-03-10] MEDS ORDERED: Phenylephrine HCl In 0.9% NaCl 1 MG/10 ML Syringe IVPUSH PRN (07:48)
[2024-03-10] MEDS ORDERED: ePHEDrine 50 MG/ML SDV IVPUSH PRN ×2 (07:48)
[2024-03-10] MEDS: Nalbuphine 10 MG/0.5 ML Syringe IVPUSH PRN (08:00)
[2024-03-10] MEDS ORDERED: dexmedeTOMIDine HCl 200 MCG/2 ML SDV EPIDUR SCH (08:00)
[2024-03-10] MEDS: Promethazine 25 MG/ML SDV IM PRN (08:01)
[2024-03-10] MEDS: Ampicillin 1 GM in Sodium Chloride 0.9% 50 ML IV SCH (09:11)
[2024-03-10] MEDS: Ropivacaine HCl/PF 400 MG in Premix Bag 1 BAG EPIDUR SCH (10:38)
[2024-03-10] MEDS ORDERED: Terbutaline 1 MG/ML SDV SUBCUT PRN (11:29)
[2024-03-10] MEDS: Bupivacaine 0.25% 10 ML SDV ONE (11:39)
[2024-03-10] MEDS: Oxytocin/0.9 % Sodium Chloride 30 UNIT/500 ML BAG IV SCH (12:00)
[2024-03-10] MEDS ORDERED: oxyCODONE 5 MG Tab PO PRN (19:56)
[2024-03-10] MEDS ORDERED: Ibuprofen 800 MG Tab PO PRN (19:56)
[2024-03-10 20:17] LABS: PH,UMBILICAL ARTERIAL 7.16 (7.18-7.38)
[2024-03-10 20:18] LABS: PH,UMBILICAL VENOUS 7.238 (7.25-7.45)
[2024-03-10] MEDS: Acetaminophen 500 MG Tab PO PRN (21:19)
[2024-03-10] MEDS: Benzocaine/Menthol 20%-0.5% Spray 78 GM Cannister TOP PRN (21:24)
[2024-03-10] MEDS: Witch Hazel Medicated Pads 40/Jar TOP PRN (21:25)
[2024-03-10] MEDS: Lanolin 100% Cream 7 GM Tube TOP PRN (21:25)
[2024-03-11 05:45] LABS: HEMOGLOBIN 9.8 g/dL (12.0-16.0)
[2024-03-11] MEDS: Docusate Sodium 100 MG Cap PO PRN (07:53)
[2024-03-12 13:42] VITALS: BP 140/70; PULSE 91
== END 2024-03-12 13:30 | disposition home or self-care (01) | DRG 560 ==
LOC: MW.OBCHECK 04:08 → MW.OB 04:10 → MW.OBCHECK 04:42 → OBSVTOIN 19:36 → MW.OB 22:55
PROVIDERS: ADMIT Obstetrics & Gynecology; ATTEND Obstetrics & Gynecology
PROC: 10E0XZZ Delivery of Products of Conception, External Approach (ICD-10-PCS; principal; 2024-03-10)
PROC: 0HQ9XZZ Repair Perineum Skin, External Approach (ICD-10-PCS; 2024-03-10)
PROC: 3E0R3BZ Introduction of Anesthetic Agent into Spinal Canal, Percutaneous Approach (ICD-10-PCS; 2024-03-10)
PROC: 00HU33Z Insertion of Infusion Device into Spinal Canal, Percutaneous Approach (ICD-10-PCS; 2024-03-10)
DX: O42.02 Full-term premature rupture of membranes, onset of labor within 24 hours of rupture (principal); Z37.0 Single live birth; O99.824 Streptococcus B carrier state complicating childbirth; O99.52 Diseases of the respiratory system complicating childbirth; J45.909 Unspecified asthma, uncomplicated; O75.89 Other specified complications of labor and delivery; R19.7 Diarrhea, unspecified; O70.0 First degree perineal laceration during delivery; O99.214 Obesity complicating childbirth; Z3A.38 38 weeks gestation of pregnancy; Z91.030 Bee allergy status; Z90.89 Acquired absence of other organs; Z98.890 Other specified postprocedural states
CPT/HCPCS: 36415; 51702; 80053; 81001; 82570; 82803; 83615; 84112; 84156; 84550; 85014; 85018; 85025; 86592; 86850; 86900; 86901; A9270-GY; J0290; J2300; J2550; J2590; J2795; J3490; J7120